=== PATIENT | female | born 1995 | race Caucasian/White ===

== ENCOUNTER 2025-02-20 22:29 | Emergency (ER) | payer BC, SELFPAY ==
[2025-02-20 22:34] VITALS: BP 117/75; PULSE 76; RESP 16; TEMP 36.5; O2SAT 98; BMI 36.6
--- NOTE | 2025-02-20 22:37 | DI.RAD.S_ITS ---
PROCEDURE: XR ANKLE LT MIN 3V INDICATIONS: pain, injury TECHNIQUE: 3 views of the ankle were acquired. COMPARISON: None. FINDINGS: Bones: Small fracture off the inferior tip of the 5th metatarsal. Ankle mortise is normally aligned. No suspicious bony lesions. Soft tissues: Large tibiotalar joint effusion. Achilles tendon appears normal. Severe ankle swelling. IMPRESSION: Small fracture of the inferior tip of the 5th metatarsal. No acute bony abnormality about the ankle. Moderate joint effusion. Internal derangement not excluded. Dictated by: Blaise Ortega M.D. on 02/20/2025 at 23:26 Approved by: Blaise Ortega M.D. on 02/20/2025 at 23:27
[2025-02-20] MEDS: IBUPROFEN 400 MG TABLET 800 MG PO (22:41)
[2025-02-20] MEDS: ACETAMINOPHEN 325 MG TABLET 975 MG PO (22:41)
--- NOTE | 2025-02-20 22:43 | PC.NURSE ---
Ice pack provided in triage
--- NOTE | 2025-02-21 01:42 | ED_ITS ---
HPI - Extremity Injury (Lower) General Chief Complaint: Extremity Injury, Lower Stated Complaint: Lt ankle popped, rt leg pain Time Seen by Provider: 02/21/25 01:38 Source: patient Mode of arrival: Wheelchair History of Present Illness HPI Narrative: 29-year-old female was walking in [place] 9:00 p.m. last night, tripped, twisted her left ankle, pain to the left lateral ankle and to the base of the left mid foot. Right distal mid foot discomfort but able to bear weight on it without significant difficulty. No other injuries to upper extremity, face, neck, upper mid lower back, trunk, hips, knees. Related Data Allergies Allergy/AdvReac Type Severity Reaction Status Date / Time cycline-family Allergy Severe Anaphylaxis Uncoded 02/20/25 22:34 Patient History Social History Smoking Status: Never smoker Smoking Status: Never smoker Exam Narrative Exam Narrative: GENERAL: Well-developed patient, in mild distress. HEAD: Atraumatic. Normocephalic. EYES: Pupils equal round and reactive. Extraocular motions intact. No scleral icterus. No injection or drainage. ENT: Nose without bleeding, purulent drainage. Throat without erythema, tonsillar hypertrophy or exudate. Airway patent. NECK: Trachea midline. Non tender CARDIOVASCULAR: Regular rate and rhythm without murmurs, gallops, or rubs. RESPIRATORY: Clear to auscultation. Breath sounds equal bilaterally. No wheezes, rales, or rhonchi. GASTROINTESTINAL: Abdomen soft, non-tender, nondistended. EXTREMITIES: Left foot with tenderness lateral mid foot, no skin changes or lacerations. Good DP pulse. No gross deformity. BACK: Nontender without deformity or crepitance. No flank tenderness. NEURO: AOx3. Motor functions grossly nonfocal. SKIN: No rash or erythema of visible areas Initial Vital Signs Initial Vital Signs: Vital Signs Temperature 97.7 F 02/20/25 22:34 Pulse Rate 76 02/20/25 22:34 Respiratory Rate 16 02/20/25 22:34 Blood Pressure 117/75 02/20/25 22:34 Pulse Oximetry 98 02/20/25 22:34 Oxygen Delivery Method Room Air 02/20/25 22:34 Course Orders Ordered: Discontinued Medications Acetaminophen (Acetaminophen 325 Mg Tablet) 975 mg PO NOW ONE Stop: 02/20/25 22:38 Last Admin: 02/20/25 22:41 Dose: 975 mg Documented By: JORDON Ibuprofen (Ibuprofen 400 Mg Tablet) 800 mg PO NOW ONE Stop: 02/20/25 22:38 Last Admin: 02/20/25 22:41 Dose: 800 mg Documented By: JORDON Vital Signs Vital signs: Vital Signs - 8 hr 02/21/25 02:03 Pulse Rate 71 Respiratory Rate 18 Blood Pressure 120/62 Pulse Oximetry 95 Oxygen Delivery Method Room Air MDM - Extremity Injury (Lower) Imaging Data Extremity x-ray #1: Radiologist's Impression: [address] [address] XRay Report Signed Patient: Holland Bassett MR#: [id number] : 1995 Acct:[id number] Age/Sex: 29 / F Date of Service: 02/20/25 Loc: ED Accession Number: [id number] Procedure: XR ankle LT min 3V Ordering Provider: René Becerril MD PROCEDURE: XR ANKLE LT MIN 3V INDICATIONS: pain, injury TECHNIQUE: 3 views of the ankle were acquired. COMPARISON: None. FINDINGS: Bones: Small fracture off the inferior tip of the 5th metatarsal. Ankle mortise is normally aligned. No suspicious bony lesions. Soft tissues: Large tibiotalar joint effusion. Achilles tendon appears normal. Severe ankle swelling. IMPRESSION: Small fracture of the inferior tip of the 5th metatarsal. No acute bony abnormality about the ankle. Moderate joint effusion. Internal derangement not excluded. Dictated by: Blaise Ortega M.D. on 02/20/2025 at 23:26 Approved by: Blaise Ortega M.D. on 02/20/2025 at 23:27 [facility] Narrative Medical decision making narrative: 29-year-old female left ankle and foot pain after twisting injury last night. X-ray shows avulsion of the base of the 5th metatarsal, and left ankle joint effusion. Placed left walking boot with crutches nonweightbearing. Mild pain tenderness right distal foot without gross deformity or significant swelling. She has been able to bear weight on the right foot. No x-rays right foot. Advised recheck with Orthopedic surgery or this week. Advised use of Tylenol and or Motrin as needed for pain control. Discharge Plan Departure Patient Disposition: Home Clinical Impression: Left ankle strain, Fracture of left foot, Right foot strain Activity Restrictions/Additional Instructions: [place] with left-sided ankle pain and swelling, as well as the to the base of the left foot. Unable to bear weight and walk on the left ankle/foot. Some mild pain to the right foot, able to bear weight and walk on the right foot. X-rays left ankle showed no ankle joint fra cture but some swelling effusion, and a small avulsion fracture to the base of the 5th metatarsal foot bone. Placed in walking boot. Nonweightbearing with crutches. Referrals: Yvette Lai DO [Physician, Orthopedic Surgery] Stand Alone Forms: Patient Portal/API
[2025-02-21 02:03] VITALS: BP 120/62; PULSE 71; RESP 18; O2SAT 95
== END 2025-02-21 02:17 | disposition home or self-care (01) ==
PROVIDERS: Emergency Provider Emergency Medicine
DX: S96.912A Strain of unspecified muscle and tendon at ankle and foot level, left foot, initial encounter (principal); S96.911A Strain of unspecified muscle and tendon at ankle and foot level, right foot, initial encounter; S92.902A Unspecified fracture of left foot, initial encounter for closed fracture; X50.1XXA Overexertion from prolonged static or awkward postures, initial encounter
CPT/HCPCS: 73610; 99283

== ENCOUNTER → 2025-03-15 16:06 | Outpatient (CLI) | payer BC, SELFPAY ==
--- NOTE | 2025-03-15 16:08 | DI.MRI.S_ITS ---
PROCEDURE: MR ANKLE LT WO CON INDICATIONS: r/o peroneal tendon tear TECHNIQUE: Noncontrast sagittal T1 spin echo and T2 fast spin echo with fat saturation, axial proton density fast spin echo and T2 fast spin echo with fat saturation, coronal T1 spin echo and T2 fast spin echo with fat saturation through the ankle/hindfoot. COMPARISON: None. FINDINGS: Image quality: Excellent. Bones and joints: Soft tissue swelling around ankle joint is seen. No discrete drainable fluid collection. Mild marrow edema is seen involving anterior weight-bearing portion of the talus and posterior aspect of talus without discrete fracture line. Marrow edema is also seen involving distal portion of cuboid and adjacent 5th metatarsal base without discrete fracture line. No osteochondral injuries of talar dome. Small tibiotalar joint effusion, no loose bodies. Medial structures: The posterior tibialis, flexor digitorum longus, and flexor hallucis longus tendons are intact. The posterior tibial neurovascular bundle appears normal within the tarsal tunnel, without extrinsic mass effect. The deltoid ligament and spring ligament are thickened with intrasubstance T2 hyperintense signal. Lateral structures: The anterior talofibular ligament is thickened with intrasubstance T2 hyperintense signal. The calcaneofibular, and posterior talofibular ligaments appear intact. More superiorly, the anterior and posterior tibiofibular ligaments appear intact, as is the intermalleolar ligament. The tibiofibular syndesmosis is normal in width at 2 mm or less. Tendinosis involving peroneus brevis tendon near its insertion on 5th metatarsal base is seen with mild surrounding edema and tendon thickening. There is low to moderate grade partial-thickness tear involving peroneus longus tendon at the level of mid to distal calcaneus extending to the level of calcaneocuboid joint. No full-thickness tendon rupture. The sinus tarsi demonstrates normal fatty signal, without edema, fibrosis, or cyst formation. Anterior structures: The tibialis anterior, extensor hallucis longus, and extensor digitorum longus tendons appear intact. The dorsal talonavicular ligament appears intact. Posterior and plantar structures: Achilles tendon is intact. Medial and lateral bands of the plantar fascia are of normal thickness. No abductor digiti quinti muscle atrophy to suggest Terry neuropathy. IMPRESSION: 1. Soft tissue swelling around ankle joint. Contusion involving talus, distal portion of cuboid and adjacent 5th metatarsal base without definite fracture line. No osteochondral injuries of talar dome. Small joint effusion, no loose bodies. 2. Low to moderate grade partial-thickness tear involving peroneus longus tendon at the level of mid to distal calcaneus and calcaneal cuboid joint. Distal peroneus brevis tendinosis near its insertion of 5th metatarsal base. No full-thickness tendon rupture. 3. Low to moderate grade ATFL sprain/intrasubstance partial-thickness tear. Low-grade medial ankle ligament sprain. No full-thickness ankle ligament rupture. Dictated by: Brigido Reich M.D. on 03/16/2025 at 8:36 Approved by: Brigido Reich M.D. on 03/16/2025 at 8:47
== END ==
LOC: MRI 16:07
PROVIDERS: Referring Provider Physician Assistant Surgical; Visit Provider Physician Assistant Surgical
DX: S92.352A Displaced fracture of fifth metatarsal bone, left foot, initial encounter for closed fracture (principal); S90.02XA Contusion of left ankle, initial encounter; S96.812A Strain of other specified muscles and tendons at ankle and foot level, left foot, initial encounter; S93.492A Sprain of other ligament of left ankle, initial encounter; M25.572 Pain in left ankle and joints of left foot; M25.472 Effusion, left ankle; M79.89 Other specified soft tissue disorders; S86.302D Unspecified injury of muscle(s) and tendon(s) of peroneal muscle group at lower leg level, left leg, subsequent encounter
CPT/HCPCS: 73721